=== PATIENT | male | born 1985 | race African-American/Black ===

== ENCOUNTER 2017-12-17 11:23 | Emergency (ER) | payer OTHER ==
[~2017-12-17] VITALS: Ht 167.6 cm; Wt 74.8 kg
[2017-12-17] MEDS ORDERED: FLEXERIL PO (12:05)
[2017-12-17] MEDS ORDERED: HYDROCODONE-AP1 EAC6 PO (12:05)
[2017-12-17] MEDS ORDERED: MEDROLDOSEPACK PO (12:05)
== END 2017-12-17 12:18 | disposition home or self-care (01) ==
LOC: ER 11:23
DX: M43.6 Torticollis (principal); K31.84 Gastroparesis; F17.210 Nicotine dependence, cigarettes, uncomplicated; Z90.49 Acquired absence of other specified parts of digestive tract; Z91.041 Radiographic dye allergy status

== ENCOUNTER 2019-03-07 18:41 | Inpatient (IN) | payer BC ==
[~2019-03-07] VITALS: Ht 152.4 cm; Wt 87.3 kg
[2019-03-07 18:41] VITALS: BP 152/99
[~2019-03-07 18:41] MED LIST: BENTYL 10 MG CA10 M1 PO; CARAFATE 11 GM/10 M1 PO; DURAGESIC1 EAC1 TRANSDERM; FLEXERIL PO; HYDROCODONE-AP1 EAC6 PO; IBUPROFEN 600600 M1 PO; MEDROLDOSEPACK PO; NORCO 5-325 TA1 EACH PO; OMEPRAZOLE40 MG PO; ONDANSETRON HCL4 M2 PO; OXYCODONE20 MG/1 ML PO; PERCOCET 5-3251 EACH PO; PHENERGAN 25 MG25 M1 PO; PROTONIX40 M1 PO; REGLAN 5 MG TAB5 M1 PO; TRAMADOL 50 MG50 MG PO; ZOFRAN ODT4 MG PO; ZOFRAN ODT8 MG PO
[2019-03-07 19:37] LABS: ABSOLUTE NEUTROPHILS 9.1 thou/uL (1.4-8.2); BASOPHILS 0.3 % (0.0-2.0); EOSINOPHILS 0.2 % (0.0-3.0); HEMATOCRIT 43.4 % (42.0-52.0); HEMOGLOBIN 14.7 gm/dL (14.0-18.0); LYMPHOCYTES 10.6 % (24.0-44.0); MCH 30.2 pg (26.0-34.0); MCHC 33.9 g/dL (28.0-37.0); MONOCYTES 2.3 % (1.0-8.0); PLATELET COUNT 258 thou/uL (150-400); POLYS 86.6 % (36.0-66.0); RBC 4.87 mil/uL (4.50-6.00); RDW 14.2 % (10.5-14.5); WBC 10.5 thou/uL (4.0-11.0)
[2019-03-07 19:43] LABS: CALCIUM 9.5 mg/dL (8.5-10.1); POTASSIUM 3.9 mmol/L (3.5-5.1)
[2019-03-07 19:50] LABS: ALBUMIN 4.5 g/dL (3.4-5.0); TOTAL BILIRUBIN 0.4 mg/dL (<0.1-1.0); TOTAL PROTEIN 8.1 g/dL (6.4-8.2)
[2019-03-07 21:45] VITALS: BP 153/93
[2019-03-07 21:59] VITALS: BP 103/62
[2019-03-07 22:21] VITALS: BP 85/54
[2019-03-08 00:19] VITALS: BP 157/84
--- NOTE | 2019-03-08 03:06 | NUR ---
Pt arrived from ED at 2215 via cart accompanied by abdirizak. Pt A/OX4 though he was sleepy.Up with SBA to the bed.Admission assessment completed and consents signed. Pt c/o abd pain in bilateral lower quads LOP 8/10,medicated with Morphine with some relief reported. Pt had about 20cc of green emesis,Zofran given with relief reported. IVF infusing via RUE IV without problems. Call light/personal items placed within reach. Will continue to monitor pt.
[2019-03-08 04:48] VITALS: BP 135/75
[2019-03-08 05:42] LABS: CALCIUM 8.5 mg/dL (8.5-10.1); CREATININE 0.8 mg/dL (0.7-1.3); POTASSIUM 3.5 mmol/L (3.5-5.1)
[2019-03-08 06:58] LABS: URINE BILIRUBIN NEGATIVE (Negative); URINE BLOOD NEGATIVE (Negative); URINE CLARITY CLEAR; URINE COLOR YELLOW; URINE GLUCOSE-RANDOM* NEGATIVE (Negative); URINE KETONES 2+ (Negative); URINE LEUKOCYTES-REFLEX NEGATIVE (Negative); URINE NITRITE-REFLEX NEGATIVE (Negative); URINE PROTEIN (DIPSTICK) NEGATIVE (Negative); URINE SPECIFIC GRAVITY >= 1.030 (1.005-1.035); URINE UROBILINOGEN 0.2 E.U./dl (0.2-1.0)
[2019-03-08 07:06] LABS: AMP/METHAMP Negative (Negative); BARBITURATES Negative (Negative); BENZODIAZEPINES Negative (Negative); COCAINE Negative (Negative); METHADONE Negative (Negative); OPIATES POSITIVE (Negative); PCP Negative (Negative)
[2019-03-08 07:30] VITALS: BP 119/76
--- NOTE | 2019-03-08 08:16 | NUR ---
ASSESMENT COMPLETED. VSS. A/O. PAIN MANAGED BY MEDS ORDERED. NO NOTED SOA. DENIES NV AT THIS TIME. NPO. UP AD SRIKANTH. CONSULT TO GI PLACED. WILL CONT. TO MONITOR.
[2019-03-08] MEDS ORDERED: ACETAMINOPHEN325 M1 PO (14:09)
--- NOTE | 2019-03-08 14:14 | NUR ---
REPORT FROM STAFF THAT PT WALKED OFF UNIT WITH BELONGINGS. PAGED SECURITY. CHECKED PT'S ROOM- NOTED 20 G IV CANNULA IN TRASH BIN. APPEARS THAT PT MAY HAVE TAKEN IT OFF HIMSELF. SECURITY VERIFIED THAT NO IV WAS PRESENT WHEN THEY SAW PT IN PARKING LOT. AIRMAILED DR. HOFFMANN TO UPDATE ABOUT PT'S ELOPEMENT. WAITING FOR CALL BACK.
--- NOTE | 2019-03-08 14:39 | NUR ---
THIS NURSE SAW THE PERIPHEARL IV IN THE BIN IN ROOM 423. PATIENT TOOK THE IV OUT AND LEFT IT IN THE TRASH BIN BEFORE HE LEFT THE FLOOR.
== END 2019-03-08 14:05 | disposition left against medical advice (07) | DRG 391 ==
LOC: ER 18:41 → 4E 21:19 → EROBS 21:19 → 4E 22:00
PROVIDERS: Nurse Practitioner Family; ADMIT Internal Medicine
DX: K31.84 Gastroparesis (principal); K85.90 Acute pancreatitis without necrosis or infection, unspecified; F12.90 Cannabis use, unspecified, uncomplicated; F17.210 Nicotine dependence, cigarettes, uncomplicated; Z53.21 Procedure and treatment not carried out due to patient leaving prior to being seen by health care provider; Z90.49 Acquired absence of other specified parts of digestive tract; Z87.11 Personal history of peptic ulcer disease; Z91.041 Radiographic dye allergy status
CPT/HCPCS: 10084

== ENCOUNTER 2019-03-09 18:08 | Inpatient (IN) | payer OTHER ==
[~2019-03-09] VITALS: Ht 167.6 cm; Wt 72.6 kg
[~2019-03-09 18:08] MED LIST changes: +ACETAMINOPHEN325 M1 PO
[2019-03-09 18:30] VITALS: BP 164/96
[2019-03-09 18:49] LABS: URINE BILIRUBIN NEGATIVE (Negative); URINE BLOOD NEGATIVE (Negative); URINE CLARITY CLEAR; URINE COLOR YELLOW; URINE GLUCOSE-RANDOM* NEGATIVE (Negative); URINE KETONES 2+ (Negative); URINE LEUKOCYTES NEGATIVE (Negative); URINE NITRITE NEGATIVE (Negative); URINE PROTEIN (DIPSTICK) 1+ (Negative)
[2019-03-09 18:50] LABS: ABSOLUTE NEUTROPHILS 9.2 thou/uL (1.4-8.2); BASOPHILS 0.2 % (0.0-2.0); EOSINOPHILS 0.1 % (0.0-3.0); HEMATOCRIT 44.2 % (42.0-52.0); HEMOGLOBIN 15.1 gm/dL (14.0-18.0); LYMPHOCYTES 9.5 % (24.0-44.0); MCH 30.3 pg (26.0-34.0); MCHC 34.2 g/dL (28.0-37.0); MCV 88.7 fL (80.0-100.0); MONOCYTES 3.3 % (1.0-8.0); PLATELET COUNT 292 thou/uL (150-400); POLYS 86.9 % (36.0-66.0); RBC 4.99 mil/uL (4.50-6.00); RDW 14.3 % (10.5-14.5); WBC 10.6 thou/uL (4.0-11.0)
[2019-03-09 18:57] LABS: POTASSIUM 3.6 mmol/L (3.5-5.1)
[2019-03-09 19:00] LABS: AMORPHOUS PHOSPHATES Many /LPF (None Seen); BACTERIA None Seen /HPF (None Seen); CASTS None Seen /LPF (None Seen); SQUAMOUS None Seen /LPF (0-3); URINE RBC None Seen /HPF (0-2); URINE WBC 0-5 Rare /HPF (0-5)
[2019-03-09 19:04] LABS: ALBUMIN 4.7 g/dL (3.4-5.0); TOTAL BILIRUBIN 0.4 mg/dL (<0.1-1.0); TOTAL PROTEIN 8.4 g/dL (6.4-8.2)
[2019-03-09 20:32] VITALS: BP 144/74
[2019-03-09 21:12] VITALS: BP 144/74
[2019-03-09 22:13] VITALS: BP 143/67
--- NOTE | 2019-03-09 22:40 | NUR ---
PT ADMITTED INTO ROOM 417. CAME UP AROUND 2120 HRS. PT BEEN SLEEPING MOSTLY. ADMISSION COMPLETED.PT RATES PAIN AT A 9/10 AROUND HIS LOWER ABDOMEN. HE HOWEVER SEEMS TO BE QUIETLY SLEEPING AND APPEARS TO BE IN NO DISTRESS. NO NAUSEA OR VOMITING NOTED AT THIS TIME. IVF INFUSING. ELEVATED TEMP NOTED-WILL RECHECK IN ONE HOUR AND TREAT.ROOM AIR-NO DISTRESS.STABLE ON FEET. WILL CONTINUE WITH POC TILL EOS.
[2019-03-10 03:20] VITALS: BP 128/77
[2019-03-10 08:42] VITALS: BP 101/84
[2019-03-10 16:00] VITALS: BP 122/61
--- NOTE | 2019-03-10 17:14 | NUR ---
PT ADMITTED RELATED TO PANCREATITIS. CM REVIEWED CHART AND SPOKE WITH CARE TEAM. CM MET WITH PT AT BEDSIDE THIS DAY. PT IS A&O X4. CM ROLE INTRODUCED. PT INDICATED THAT HE LIVES IN AN APARTMENT WITH IS FIANCE WITH 20 STEPS TO ENTER AND NO STEPS INSIDE. 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 UR NURSE INDICATED THAT PT HAD [employer] OUT OF AREA LISTED INSURANCE DURING HIS PREVIOUS HOSPITAL STAY AND THAT IT HAD TERMED February. CM ASKED IF PT HAD ANY CHANGES IN EMPLOYMENT HE INDICATED HE HADN'T AND THAT HE NEEDED TO CONTACT [employer]. CM TO FOLLOW INDICATED WITH DC PLANNING.
--- NOTE | 2019-03-10 18:21 | NUR ---
ASSUMED PT CARE AT APPROX. 1045, PT A&OX4 AMBULATES SELF IN ROOM/STEWART. IV INTACT IN R EJ INFUSING FLUIDS W/O COMPS. WAS NPO TIL DINNER HAD SOFT DIET, WILL BE NPO AT [place] FOR EGD. IV PAIN MEDS GIVEN Q 3 HRS FOR ABD PAIN AT 9-10.
[2019-03-10 20:00] VITALS: BP 125/72
--- NOTE | 2019-03-11 00:52 | NUR ---
PT IS UP AD SRIKANTH. DENIES NAUSEA. STILL C/O ABDOMINAL PAIN. PT IS NPO AFTER MIDNIGHT. PLAN FOR EGD TODAY.
[2019-03-11 07:10] VITALS: BP 141/94
[2019-03-11] MEDS ORDERED: NORCO 5-325 TA1 EACH PO (11:37)
[2019-03-11] MEDS ORDERED: PROTONIX40 M1 PO (14:10)
[2019-03-11 15:05] VITALS: BP 141/94
--- NOTE | 2019-03-11 15:36 | NUR ---
ASSUMED CARE OF PT AT 0700. ASSESSMENT CHARTED. A&O,X4. C/O ABD PAIN, PAIN MEDS GIVEN ORDERED. PT HAD EGD TODAY, RETURNED AT 13:50 IN STABLE CONDITION. NEW DISCHARGE ORDERS. RIGHT EJ IV REMOVED, NO ACTIVE BLEEDING. DISCHARGE INFORMATION AND NEW SCRIPTS GIVEN TO PT. PT REFUSED WHEELCHAIR ESCORT. S.O. TO PICK PT UP. PT LEFT WITH ALL BELONGINGS IN STABLE CONDITION, DENYING PAIN. PT LEFT AT APPROX 15:40.
--- NOTE | 2019-03-14 18:05 | PATH ---
[facility] [place] [address] [place] [address] PATHOLOGY RPT PROCEDURE Name: CAR TSANG Room #: 417-I DIS IN M.R.#: [id number] ������������������ Admission: 03/09/19 ������������������ Date of : 87 Discharge: 03/11/19 Report #: [id number] Path Case #: [id number] [facility] Accession Number: [id number] . 01 Material submitted: . stomach - BX GASTRITIS R/O H PYLORI . 01 Clinical history: . Pre-OP DX: Abdominal pain Post-OP DX: Gastritis, hiatal hernia . 02 Diagnosis: Gastric mucosa, gastritis, rule out H. pylori, endoscopic biopsy: - Mild chronic inflammation. - Negative for intestinal metaplasia or atrophy. - Negative for Helicobacter pylori (properly controlled immunohistochemical stain performed). (IUV:pit 03/14/2019) QTP/03/14/2019 . 02 Electronically signed: . Sonia Ramsey MD, Pathologist NPI- [id number] . 01 Gross description: . Received in formalin labeled "Car Tsang Jr, BX gastritis, rule out H. pylori," are 2 segments of love soft tissue measuring 0.9 x 0.3 x 0.2 cm in aggregate dimensions and ranging from 0.4 to 0.5 cm in maximum dimension. The specimen is submitted entirely in cassette A1. (TSD; 03/11/2019) TOB/TOB . 02 Pathologist provided ICD-10: K29.50 . 02 CPT . 879476, [id number] Specimen Comment: A courtesy copy of this report has been sent to Specimen Comment: [phone], . Specimen Comment: Report sent to / DR BETH Performed at: 01 [place] [id number] [id number] MD Devyn Vyas MD Phone: [phone] Performed at: [address] [id number] [address] [address] PATHOLOGY RPT PROCEDURE Name: CAR TSANG JR Room #: 417-I DIS IN M.R.#: [id number] ������������������ Admission: 03/09/19 ������������������ Date of : 87 Discharge: 03/11/19 Report #: [id number] Path Case #: [id number] MD Sonia Ramsey MD Phone: [phone]
== END 2019-03-11 16:27 | disposition home or self-care (01) | DRG 391 ==
LOC: ER 18:08 → EROBS 20:22 → 4E 20:22
PROVIDERS: Physician Assistant; ADMIT Hospitalist
PROC: 0DB68ZX Excision of Stomach, Via Natural or Artificial Opening Endoscopic, Diagnostic (ICD-10-PCS; principal; 2019-03-11)
DX: K29.70 Gastritis, unspecified, without bleeding (principal); K85.20 Alcohol induced acute pancreatitis without necrosis or infection; K76.0 Fatty (change of) liver, not elsewhere classified; K44.9 Diaphragmatic hernia without obstruction or gangrene; F17.290 Nicotine dependence, other tobacco product, uncomplicated; F12.11 Cannabis abuse, in remission; Z87.11 Personal history of peptic ulcer disease; Z90.49 Acquired absence of other specified parts of digestive tract; Z79.899 Other long term (current) drug therapy; Z91.041 Radiographic dye allergy status
CPT/HCPCS: 10084; 62110; 62900

== ENCOUNTER 2019-03-18 18:20 | Inpatient (IN) | payer OTHER ==
[~2019-03-18] VITALS: Ht 167.6 cm; Wt 77.1 kg
[2019-03-18 18:21] VITALS: BP 161/100
--- NOTE | 2019-03-18 18:24 | NUR ---
PT IN BATHROOM TO OBTAIN A URINE SPECIMEN. PT HAS STEADY GAIT.
[2019-03-18 18:49] LABS: URINE BILIRUBIN NEGATIVE (Negative); URINE BLOOD NEGATIVE (Negative); URINE CLARITY CLEAR; URINE COLOR YELLOW; URINE GLUCOSE-RANDOM* NEGATIVE (Negative); URINE KETONES NEGATIVE (Negative); URINE LEUKOCYTES NEGATIVE (Negative); URINE NITRITE NEGATIVE (Negative); URINE PROTEIN (DIPSTICK) 2+ (Negative); URINE SPECIFIC GRAVITY 1.015 (1.005-1.035); URINE UROBILINOGEN 0.2 E.U./dl (0.2-1.0)
[2019-03-18 19:00] LABS: BACTERIA 1-9 Few /HPF (None Seen); CASTS None Seen /LPF (None Seen); CRYSTALS None Seen /LPF (None Seen); MUCUS 0-3 Light strn/LPF (None Seen); SQUAMOUS None Seen /LPF (0-3); URINE RBC 0-2 Rare /HPF (0-2); URINE WBC 0-5 Rare /HPF (0-5)
[2019-03-18 20:00] LABS: MCV 87.7 fL (80.0-100.0)
[2019-03-18 20:02] LABS: ABSOLUTE NEUTROPHILS 9.5 thou/uL (1.4-8.2); BASOPHILS 0.4 % (0.0-2.0); EOSINOPHILS 0.1 % (0.0-3.0); HEMATOCRIT 43.2 % (42.0-52.0); HEMOGLOBIN 15.1 gm/dL (14.0-18.0); LYMPHOCYTES 12.4 % (24.0-44.0); MCH 30.7 pg (26.0-34.0); MONOCYTES 3.5 % (1.0-8.0); PLATELET COUNT 255 thou/uL (150-400); POLYS 83.6 % (36.0-66.0); RBC 4.92 mil/uL (4.50-6.00); RDW 14.4 % (10.5-14.5); WBC 11.4 thou/uL (4.0-11.0)
[2019-03-18 20:06] LABS: CALCIUM 10.3 mg/dL (8.5-10.1); POTASSIUM 3.8 mmol/L (3.5-5.1)
[2019-03-18 20:12] LABS: ALBUMIN 4.8 g/dL (3.4-5.0); TOTAL BILIRUBIN 0.4 mg/dL (<0.1-1.0); TOTAL PROTEIN 8.4 g/dL (6.4-8.2)
[2019-03-18 20:40] LABS: AMP/METHAMP Negative (Negative); BARBITURATES Negative (Negative); BENZODIAZEPINES Negative (Negative); COCAINE Negative (Negative); METHADONE Negative (Negative); OPIATES POSITIVE (Negative); PCP Negative (Negative)
[2019-03-18 21:10] VITALS: BP 161/100
[2019-03-18 21:23] VITALS: BP 141/72
[2019-03-18 21:45] VITALS: BP 123/68
[2019-03-19 03:35] VITALS: BP 155/89
--- NOTE | 2019-03-19 04:16 | NUR ---
PATINET IS ALERT AND ORIENTED. PATIENT IS ON CLEAR LIQUID DIET. PATIENT IS UP AD SRIKANTH. PATIENTS PAIN IS CONTROLLED. PATIENT HAS BEEN SLEEPING COMFORTABLY IN BED. PATIENT CO OF NAUSEA BUT NO VOMITING WITNESSED. WCM.
[2019-03-19 08:00] VITALS: BP 152/82
[2019-03-19] MEDS ORDERED: REGLAN 5 MG TAB5 MG PO (12:31)
[2019-03-19] MEDS ORDERED: ONDANSETRON HCL4 M2 PO (12:32)
[2019-03-19 12:45] VITALS: BP 152/82
[2019-03-19] MEDS ORDERED: PROTONIX 20 MG20 M1 PO (13:12)
--- NOTE | 2019-03-19 14:03 | NUR ---
ASSUMED CARE OF PT AT 0700. ASSESSMENT COMPLETED. A&O,X4. C/O NAUSEA AND ABD PAIN, PRN PAIN MEDS AND SCHEDULED NAUSEA MEDS GIVEN ORDERED. PT TOLERATING PO INTAKE. ROOM AIR. SKIN INTACT. UP AD SRIKANTH. NEW DISCHARGE ORDERS. NEW SCRIPTS GIVEN. IV REMOVED, NO ACTIVE BLEEDING. S.O. AT BEDSIDE TO TAKE PT HOME. D/C INSTRUCTIONS GIVEN TO PT AT BEDSIDE. STATE NO QUESTIONS OR CONCERNS. PT REFUSED WHEELCHAIR ESCORT. PT LEFT IN STABLE CONDTION WITH BELONGINGS AT 13:27.
== END 2019-03-19 13:47 | disposition home or self-care (01) | DRG 392 ==
LOC: ER 18:20 → EROBS 20:38 → 4E 21:32
PROVIDERS: Physician Assistant; ADMIT Hospitalist
DX: K31.84 Gastroparesis (principal); F12.90 Cannabis use, unspecified, uncomplicated; F17.210 Nicotine dependence, cigarettes, uncomplicated; Z90.49 Acquired absence of other specified parts of digestive tract; Z87.11 Personal history of peptic ulcer disease; Z79.899 Other long term (current) drug therapy; Z91.041 Radiographic dye allergy status; Z83.3 Family history of diabetes mellitus; Z82.49 Family history of ischemic heart disease and other diseases of the circulatory system
CPT/HCPCS: 10084

== ENCOUNTER 2019-05-30 20:47 | Emergency (ER) | payer OTHER ==
[~2019-05-30] VITALS: Ht 167.6 cm; Wt 81.7 kg
[~2019-05-30 20:47] MED LIST changes: +PROTONIX 20 MG20 M1 PO; +REGLAN 5 MG TAB5 MG PO
[2019-05-30 22:38] LABS: ABSOLUTE NEUTROPHILS 4.3 thou/uL (1.4-8.2); MCHC 34.4 g/dL (28.0-37.0)
[2019-05-30 22:40] LABS: BASOPHILS 0.5 % (0.0-2.0); EOSINOPHILS 2.6 % (0.0-3.0); HEMATOCRIT 37.6 % (42.0-52.0); HEMOGLOBIN 12.9 gm/dL (14.0-18.0); LYMPHOCYTES 26.9 % (24.0-44.0); MCH 29.3 pg (26.0-34.0); MCV 85.2 fL (80.0-100.0); MONOCYTES 5.9 % (1.0-8.0); PLATELET COUNT 184 thou/uL (150-400); POLYS 64.1 % (36.0-66.0); RBC 4.41 mil/uL (4.50-6.00); WBC 8.1 thou/uL (4.0-11.0)
[2019-05-30 22:41] LABS: CALCIUM 8.6 mg/dL (8.5-10.1); CREATININE 1.1 mg/dL (0.7-1.3); POTASSIUM 3.9 mmol/L (3.5-5.1)
[2019-05-30 22:48] LABS: ALBUMIN 3.3 g/dL (3.4-5.0); TOTAL BILIRUBIN 0.3 mg/dL (<0.1-1.0); TOTAL PROTEIN 7.3 g/dL (6.4-8.2)
[2019-05-31 01:03] LABS: URINE BILIRUBIN NEGATIVE (Negative); URINE BLOOD NEGATIVE (Negative); URINE CLARITY CLEAR; URINE COLOR YELLOW; URINE GLUCOSE-RANDOM* NEGATIVE (Negative); URINE KETONES 1+ (Negative); URINE LEUKOCYTES NEGATIVE (Negative); URINE NITRITE NEGATIVE (Negative); URINE PROTEIN (DIPSTICK) NEGATIVE (Negative); URINE SPECIFIC GRAVITY 1.015 (1.005-1.035); URINE UROBILINOGEN 0.2 E.U./dl (0.2-1.0)
[2019-05-31] MEDS ORDERED: NAPROSYN500 MG PO (01:09)
[2019-05-31 01:39] VITALS: BP 103/48
== END 2019-05-31 01:39 | disposition home or self-care (01) ==
LOC: ER 20:47
PROVIDERS: Physician Assistant
DX: B34.9 Viral infection, unspecified (principal); K31.84 Gastroparesis; F17.210 Nicotine dependence, cigarettes, uncomplicated; Z90.49 Acquired absence of other specified parts of digestive tract; Z91.041 Radiographic dye allergy status

== ENCOUNTER 2019-12-15 04:50 | Emergency (ER) | payer BC, OTHER ==
[~2019-12-15] VITALS: Ht 167.6 cm; Wt 79.4 kg
[~2019-12-15 04:50] MED LIST changes: +NAPROSYN500 MG PO
[2019-12-15] MEDS ORDERED: ZOFRAN ODT4 MG SUBLING (05:07)
[2019-12-15] MEDS ORDERED: ZOFRAN ODT4 MG PO (05:11)
[2019-12-15 05:25] VITALS: BP 122/81
== END 2019-12-15 05:25 | disposition home or self-care (01) ==
LOC: ER 04:50
DX: K31.84 Gastroparesis (principal); F17.210 Nicotine dependence, cigarettes, uncomplicated; Z90.49 Acquired absence of other specified parts of digestive tract; Z91.041 Radiographic dye allergy status

== ENCOUNTER 2020-03-10 18:29 | Emergency (ER) | payer OTHER ==
[~2020-03-10] VITALS: Ht 167.6 cm; Wt 81.7 kg
[~2020-03-10 18:29] MED LIST changes: +ZOFRAN ODT4 MG SUBLING
[2020-03-10] MEDS ORDERED: PROTONIX 20 MG20 MG PO (19:02)
[2020-03-10] MEDS ORDERED: BENTYL 10 MG CA10 M1 PO (19:02)
[2020-03-10 19:21] VITALS: BP 139/78
== END 2020-03-10 19:26 | disposition home or self-care (01) ==
LOC: ER 18:29
DX: R11.10 Vomiting, unspecified (principal); F17.200 Nicotine dependence, unspecified, uncomplicated; Z76.0 Encounter for issue of repeat prescription; Z90.49 Acquired absence of other specified parts of digestive tract; Z98.84 Bariatric surgery status

== ENCOUNTER 2020-05-10 17:00 | Emergency (ER) | payer OTHER ==
[~2020-05-10] VITALS: Ht 167.6 cm; Wt 79.4 kg
[~2020-05-10 17:00] MED LIST changes: +PROTONIX 20 MG20 MG PO
[2020-05-10 17:03] VITALS: BP 123/67
[2020-05-10] MEDS ORDERED: PANTOPRAZOLE SO40 M1 PO (17:11)
== END 2020-05-10 17:53 | disposition home or self-care (01) ==
LOC: ER 17:00
DX: K31.84 Gastroparesis (principal); F17.210 Nicotine dependence, cigarettes, uncomplicated; F12.90 Cannabis use, unspecified, uncomplicated; Z79.899 Other long term (current) drug therapy; Z87.11 Personal history of peptic ulcer disease; Z90.49 Acquired absence of other specified parts of digestive tract

== ENCOUNTER 2021-03-11 22:58 | Inpatient (IN) | payer BC ==
[~2021-03-11] VITALS: Ht 167.6 cm; Wt 77.1 kg
[~2021-03-11 22:58] MED LIST changes: +PANTOPRAZOLE SO40 M1 PO
[2021-03-11 23:02] VITALS: BP 120/80
[2021-03-11 23:35] LABS: ABSOLUTE NEUTROPHILS 10.5 thou/uL (1.4-8.2); BASOPHILS 0.4 % (0.0-2.0); EOSINOPHILS 1.8 % (0.0-3.0); HEMATOCRIT 40.2 % (42.0-52.0); LYMPHOCYTES 21.1 % (24.0-44.0); MCH 30.9 pg (26.0-34.0); MCHC 34.9 g/dL (28.0-37.0); MCV 88.6 fL (80.0-100.0); MONOCYTES 5.4 % (1.0-8.0); PLATELET COUNT 223 thou/uL (150-400); POLYS 71.3 % (36.0-66.0); RBC 4.54 mil/uL (4.50-6.00); RDW 14.1 % (10.5-14.5); WBC 14.7 thou/uL (4.0-11.0)
[2021-03-11 23:48] LABS: CALCIUM 9.3 mg/dL (8.5-10.1)
[2021-03-11 23:54] LABS: TOTAL BILIRUBIN 0.5 mg/dL (0.2-1.0)
[2021-03-12 00:08] LABS: POTASSIUM 6.1 mmol/L (3.5-5.1)
[2021-03-12 00:36] LABS: URINE BILIRUBIN NEGATIVE (Negative); URINE BLOOD NEGATIVE (Negative); URINE CLARITY CLEAR; URINE COLOR YELLOW; URINE GLUCOSE-RANDOM* NEGATIVE (Negative); URINE KETONES NEGATIVE (Negative); URINE LEUKOCYTES-REFLEX NEGATIVE (Negative); URINE NITRITE-REFLEX NEGATIVE (Negative); URINE PROTEIN (DIPSTICK) 1+ (Negative); URINE UROBILINOGEN 0.2 E.U./dl (0.2-1.0)
[2021-03-12 00:59] LABS: BACTERIA-REFLEX 1-9 Few /HPF (None Seen); CASTS None Seen /LPF (None Seen); CRYSTALS None Seen /LPF (None Seen); MUCUS 4-6 Moderate strn/LPF (None Seen); SQUAMOUS 0-3 Few /LPF (0-3); URINE RBC 0-2 Rare /HPF (0-2); URINE WBC-REFLEX 0-5 Rare /HPF (0-5)
[2021-03-12 06:40] VITALS: BP 142/71
--- NOTE | 2021-03-12 06:47 | NUR ---
Report attempted to 4th floor nurse. Reports nurse is not yet here and will call back.
--- NOTE | 2021-03-12 06:51 | NUR ---
Contacted Mem[facility] Deleon for pain medication order. Order received and entered.
[2021-03-12 07:23] LABS: ABSOLUTE NEUTROPHILS 12.3 thou/uL (1.4-8.2); BASOPHILS 0.5 % (0.0-2.0); EOSINOPHILS 0.3 % (0.0-3.0); HEMATOCRIT 41.4 % (42.0-52.0); LYMPHOCYTES 11.1 % (24.0-44.0); MCH 30.5 pg (26.0-34.0); MCHC 33.9 g/dL (28.0-37.0); MCV 89.8 fL (80.0-100.0); PLATELET COUNT 230 thou/uL (150-400); POLYS 85.1 % (36.0-66.0); RBC 4.61 mil/uL (4.50-6.00); RDW 14.2 % (10.5-14.5); WBC 14.5 thou/uL (4.0-11.0)
[2021-03-12 07:40] VITALS: BP 129/63
[2021-03-12 07:43] LABS: POTASSIUM 3.9 mmol/L (3.5-5.1)
[2021-03-12 08:53] VITALS: BP 143/65
--- NOTE | 2021-03-12 09:40 | EKG ---
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
--- NOTE | 2021-03-12 14:07 | NUR ---
PATIENT ARRIVED TO UNIT AT APPROXIMATELY 0830. ORIENTED TO ROOM, PROVIDED CALL LIGHT AND ADMISSION PACKET. ADMISSION COMPLETE. PATIENT C/O ABDOMINAL PAIN; THIS NURSE ATTEMPTED TO ADMINISTER TYLENOL HOWEVER THE PATIENT VOMITED IT. PROVIDER NOTIFIED. FLUIDS AND ABX INFUSING ON L HAND W NO ISSUES. INSURANCE UPDATE; PATIENT IS OON AND CM IS CURRENTLY WORKING ON TRANSFER TO . WILL CONTINUE TO MONITOR PATIENT; PATIENT GETS UP INDEPENDENTLY W NO ISSUES AND MAKES NEEDS KNOWN
--- NOTE | 2021-03-12 14:21 | NUR ---
PT ADMITTED RELATED TO GASTROPARESIS, INTRACTABLE VOMITING. CM REVIEWED CHART AND SPOKE WITH CARE TEAM. CM WAS NOTIFIED BY UR NURSE THAT PT'S [employer] IS OON HERE AND THAT PT WOULD NEED TO TRANSFER TO AN IN NETWORK FACILITY. IN NETWORK [facility]. CM MET WITH PT AT BEDSIDE THIS DAY. PT APPERED TO BE A&O X4. CM ROLE INTRODUCED. PT INDICATED HE RESIDES IN AN APARTMENT WITH HIS WITH NO STEPS. 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 PT INDICATED HE WANTS TO LOOK AT TRANSFERING TO . CM CONTACTED [employer]ATE AND FAXED RECORDS FOR REVIEW. AWAITING RESPONSE.
--- NOTE | 2021-03-12 16:31 | NUR ---
[facility] CALLED [facility] INDICATED THAT THEY HAD CALLED PHYSICIAN DR. BETH AND HE INDICATED THAT PT WOULD LIKELY BE MEDICALLY STABLE TO DC HOME TOMORROW AND THAT THEREFORE THEY WOULD NOT BE ACCEPTING PT IN TRANSFER. UR NURSE REACHED OUT TO INSURANCE TO SEE IF THEY WOULD AUTH ONE DAY. CM AWAITING RESPONSE.
[2021-03-12 17:00] VITALS: BP 148/90
[2021-03-12 19:21] VITALS: BP 146/70
[2021-03-13 05:40] LABS: HEMATOCRIT 38.7 % (42.0-52.0); HEMOGLOBIN 12.8 gm/dL (14.0-18.0); MCH 29.6 pg (26.0-34.0); MCHC 33.1 g/dL (28.0-37.0); MCV 89.6 fL (80.0-100.0); RBC 4.32 mil/uL (4.50-6.00); WBC 15.9 thou/uL (4.0-11.0)
[2021-03-13 05:54] LABS: CALCIUM 8.6 mg/dL (8.5-10.1); CREATININE 0.9 mg/dL (0.7-1.3); MAGNESIUM 1.8 mg/dL (1.8-2.4)
[2021-03-13 07:12] VITALS: BP 151/85
[2021-03-13] MEDS ORDERED: ZOFRAN ODT4 MG DISSOLVE (11:43)
[2021-03-13] MEDS ORDERED: ULTRAM50 MG PO (11:43)
[2021-03-13] MEDS ORDERED: LEVOFLOXACIN500 MG PO (11:44)
[2021-03-13 12:55] VITALS: BP 151/85
--- NOTE | 2021-03-13 14:17 | NUR ---
ASSUMED CARE OF PATIENT AT SHIFT CHNAGE; 0700. ASSESSMENT CHARTED. MEDICATIONS ADMINISTERED PER MAR. VSS; AFEBRILE THIS SHIFT. PATIENT IS A&OX4 AND C/O ABDOMINAL PAIN AND NAUSEA. PATIENT SAYS HE HAD DRY HEAVING THIS A.M. BUT WAS NOT ABLE TO TOLERATE APPLE JUICE AND VOMITED. PROVIDER SAW PATIENT AND DIRECTED HIM TO FOLLOW UP W HIS PRIMARY CARE PROVIDER AND CLEARED THE PATIENT FOR DISCHARGE. PATIENT VOICED NO OTHER NEEDS AT TIME OF DISCHARGE. REFUSED WRITTEN EDUCATION ON PRESCRIPTIONS PHARMACY WILL PROVIDE INFO. PATIENT LEFT AT APPROX 1415
--- NOTE | 2021-03-13 15:07 | NUR ---
CARE TEAM INDICATED THAT PT IS MEDICALLY STABLE TO DC HOME THIS DAY. PT TO DC HOME TO SELF CARE. NO OTHER CM INTERVENTION INDICATED. CASE CLOSED.
== END 2021-03-13 14:30 | disposition home or self-care (01) | DRG 690 ==
LOC: ER 22:58 → EROBS 03-12 03:09 → 4W 03-12 03:09
PROVIDERS: Emergency Medicine; Nurse Practitioner; ADMIT Hospitalist; ATTEND Hospitalist
DX: N30.90 Cystitis, unspecified without hematuria (principal); K31.84 Gastroparesis; F12.90 Cannabis use, unspecified, uncomplicated; E87.5 Hyperkalemia; K52.9 Noninfective gastroenteritis and colitis, unspecified; Z90.49 Acquired absence of other specified parts of digestive tract; F17.210 Nicotine dependence, cigarettes, uncomplicated; Z91.041 Radiographic dye allergy status; Z87.11 Personal history of peptic ulcer disease
CPT/HCPCS: 10047

== ENCOUNTER 2021-08-15 07:11 | Inpatient (IN) | payer OTHER ==
[~2021-08-15] VITALS: Ht 167.6 cm; Wt 77.1 kg
[~2021-08-15 07:11] MED LIST changes: +LEVOFLOXACIN500 MG PO; +ULTRAM50 MG PO; +ZOFRAN ODT4 MG DISSOLVE
[2021-08-15 07:13] VITALS: BP 150/106
[2021-08-15 07:43] LABS: URINE BILIRUBIN 2+ (Negative); URINE BLOOD NEGATIVE (Negative); URINE CLARITY SL CLOUDY; URINE COLOR YELLOW; URINE GLUCOSE-RANDOM* NEGATIVE (Negative); URINE KETONES 1+ (Negative); URINE LEUKOCYTES-REFLEX NEGATIVE (Negative); URINE NITRITE-REFLEX NEGATIVE (Negative); URINE PROTEIN (DIPSTICK) 2+ (Negative); URINE SPECIFIC GRAVITY 1.025 (1.005-1.035); URINE UROBILINOGEN 0.2 E.U./dl (0.2-1.0)
[2021-08-15 07:45] LABS: ABSOLUTE NEUTROPHILS 8.6 thou/uL (1.4-8.2); BASOPHILS 0.5 % (0.0-2.0); EOSINOPHILS 1.9 % (0.0-3.0); HEMATOCRIT 43.8 % (42.0-52.0); HEMOGLOBIN 15.1 gm/dL (14.0-18.0); LYMPHOCYTES 26.8 % (24.0-44.0); MCH 30.3 pg (26.0-34.0); MCHC 34.4 g/dL (28.0-37.0); MCV 88.2 fL (80.0-100.0); MONOCYTES 7.1 % (1.0-8.0); PLATELET COUNT 268 thou/uL (150-400); POLYS 63.7 % (36.0-66.0); RBC 4.97 mil/uL (4.50-6.00); RDW 14.6 % (10.5-14.5); WBC 13.5 thou/uL (4.0-11.0)
[2021-08-15 07:54] LABS: CALCIUM 9.9 mg/dL (8.5-10.1)
[2021-08-15 07:55] LABS: POTASSIUM 4.8 mmol/L (3.5-5.1)
[2021-08-15 08:00] LABS: ALBUMIN 4.6 g/dL (3.4-5.0); TOTAL BILIRUBIN 0.7 mg/dL (0.2-1.0); TOTAL PROTEIN 8.8 g/dL (6.4-8.2)
[2021-08-15 08:46] LABS: CASTS None Seen /LPF (None Seen); CRYSTALS None Seen /LPF (None Seen); SQUAMOUS None Seen /LPF (0-3)
[2021-08-15 08:47] LABS: BACTERIA-REFLEX 1-9 Few /HPF (None Seen); MUCUS 4-6 Moderate strn/LPF (None Seen); URINE RBC None Seen /HPF (NONE SEEN); URINE WBC-REFLEX 0-5 Rare /HPF (0-5)
[2021-08-15 14:18] VITALS: BP 154/87
[2021-08-15 14:52] VITALS: BP 143/91
[2021-08-15 15:02] VITALS: BP 167/78
--- NOTE | 2021-08-15 15:55 | NUR ---
Assumed patient care about 3:50pm.
[2021-08-15 19:35] VITALS: BP 108/85
--- NOTE | 2021-08-15 19:39 | NUR ---
A/O, calm and cooperative. vomited 3 times, watery and yellow. medication given. bed rest now.
--- NOTE | 2021-08-16 03:21 | NUR ---
Pt. rested quietly at intervals during the night when chcked on during frequent rounds. He c/o chronic nausea amd antiemetics given (see emar) with some relief noted. Pt. also c/o abdomina; pain and pain med given (see emar) with some relief.
[2021-08-16 08:09] VITALS: BP 127/70
[2021-08-16 09:35] LABS: ABSOLUTE NEUTROPHILS 11.6 thou/uL (1.4-8.2); BASOPHILS 0.3 % (0.0-2.0); EOSINOPHILS 0.2 % (0.0-3.0); HEMATOCRIT 43.2 % (42.0-52.0); HEMOGLOBIN 14.4 gm/dL (14.0-18.0); LYMPHOCYTES 13.7 % (24.0-44.0); MCH 30.1 pg (26.0-34.0); MCHC 33.3 g/dL (28.0-37.0); MCV 90.4 fL (80.0-100.0); MONOCYTES 9.5 % (1.0-8.0); PLATELET COUNT 206 thou/uL (150-400); POLYS 76.3 % (36.0-66.0); RBC 4.78 mil/uL (4.50-6.00); RDW 14.5 % (10.5-14.5); WBC 15.2 thou/uL (4.0-11.0)
[2021-08-16 09:50] LABS: AMP/METHAMP Negative (Negative); BARBITURATES Negative (Negative); BENZODIAZEPINES Negative (Negative); COCAINE Negative (Negative); METHADONE Negative (Negative); OPIATES Negative (Negative); PCP Negative (Negative)
[2021-08-16 09:52] LABS: CREATININE 0.9 mg/dL (0.7-1.3); MAGNESIUM 1.9 mg/dL (1.8-2.4); POTASSIUM 3.8 mmol/L (3.5-5.1)
--- NOTE | 2021-08-16 14:51 | NUR ---
PT ADMITTED RLATED TO VOMITING AND NAUSEA. CM REVIEWED CHART AND SPOKE WITH CARE TEAM. CM MET WITH PT AT BEDSIDE THIS DAY. PT APPEARED TO BE A&O X4. CM ROLE INTRODUCED. PT INDICATED HE LIVES IN AN APARTMENT WITH HIS SPOUSE WITH NO STEPS TO ENTER AND NO STEPS INSIDE. 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 PT INDICATED HE HAS A PCP DR. CHEMA LOW AT [facility] IN [facility]. PT IS PATIENT PAY. PT PLANS TO RETURN HOME ONCE MEDICALLY STABLE. AWAITING GI CONSULT AND POSSIBLE SCOPE. PT WILL BE ABLE TO DC HOME ONCE MEDICALLY STABLE.
[2021-08-16 16:05] VITALS: BP 109/64
--- NOTE | 2021-08-16 16:40 | NUR ---
TODAY THIS PT HAS HAD NO STATED PAIN AND HAS HAD OTHERWISE STABLE VS. SHE HAS RECIEVED ONE DOSE OF INSULIN SO FAR THIS SHIFT AND HAS HAD A BATH DONE WELL BEEN GETTING TURNED EVERY TWO HOURS. SHE HAS HAD A COUPLE OF INCONTINENT OCCURENCES TODAY BUT OTHERWISE SHE HAS BEEN ON AND OFF ALSEEP AND TOLERATING HER MEALS WELL.
--- NOTE | 2021-08-16 16:49 | NUR ---
TODAY THIS PT HAS HAD SOME STATED PAIN AND NAUSEA IN WHICH THEY WERE TAKEN CARE OF WITH MEDICATION. HE HAS BEEN NPO TODAY DUE TO CONTINUOS N&V AND HE HAS OTHERWISE BEEN TOLERATING HIS FLUIDS WELL. HE CANNOT KEEP ANYTHING DOWN. WE TRIED ORAL PAIN MEDICATION THIS AFTERNOON AND HE HAD MULTIPLE MOMENTS TO WHERE HE WOULD DRY HEAVE. HE DOES HAVE Q8 TORADOL ORDERED. HE IS OTHERIWSE WAITING FOR THE NEXT PLAN.
[2021-08-16 19:38] VITALS: BP 141/82
[2021-08-17 07:28] VITALS: BP 147/89
[2021-08-17] MEDS ORDERED: REGLAN 10 MG TA10 MG PO ×2 (07:41)
[2021-08-17] MEDS ORDERED: PEPCID20 MG PO ×2 (07:41)
--- NOTE | 2021-08-17 09:24 | NUR ---
today this pt is ready for d/c no N&V overnught and none after his diet advancement for breakfast. he has tolerated his food well and no pain this morning.
[2021-08-17 09:25] VITALS: BP 147/89
--- NOTE | 2021-08-17 09:48 | NUR ---
LATE ENTRY 08/16/21 ASSUMED CARE ON 1900, HAD EPISODES OF N/V, WHICH WAS CONTROLLED WITH MEDICATION. HAD ABDOMINAL PAIN WHICH WAS CONTROLLED WITH IV PAIN MEDS TORODOL AND ONE TIME WITH ORAL PAIN MEDICATION @ 2200 FOR A 7/10 PAIN SCALE. IV FLUIDS RUNNING @ 100MLS/HOUR. WILL CONTINUE TO MONITOR FOR SAFETY AND COMFORT PER UNIT PROTOCOL. UP AD SRIKANTH AND X2 GOT UP AND WALKED IN THE HALLS.
[2021-08-18] MEDS ORDERED: NOHOMEMEDICATIONS (03:08)
[2021-08-18] MEDS ORDERED: NORCO5 PO (04:22)
== END 2021-08-17 10:36 | disposition home or self-care (01) | DRG 392 ==
LOC: ER 07:11 → EROBS 13:43 → 4W 14:46
PROVIDERS: Emergency Medicine; Nurse Practitioner; ADMIT Hospitalist; ATTEND Hospitalist
DX: R11.2 Nausea with vomiting, unspecified (principal); Z53.29 Procedure and treatment not carried out because of patient's decision for other reasons; Z90.49 Acquired absence of other specified parts of digestive tract
CPT/HCPCS: 10040

== ENCOUNTER 2021-08-18 02:59 | Emergency (ER) | payer OTHER ==
[~2021-08-18] VITALS: Ht 167.6 cm; Wt 77.1 kg
[~2021-08-18 02:59] MED LIST changes: +PEPCID20 MG PO; +REGLAN 10 MG TA10 MG PO
[2021-08-18 03:04] VITALS: BP 133/79
[2021-08-18] MEDS ORDERED: NOHOMEMEDICATIONS (03:08)
[2021-08-18] MEDS ORDERED: NORCO5 PO (04:22)
== END 2021-08-18 04:37 | disposition home or self-care (01) ==
LOC: ER 02:59
DX: R10.9 Unspecified abdominal pain (principal); R11.0 Nausea; F17.210 Nicotine dependence, cigarettes, uncomplicated; Z91.041 Radiographic dye allergy status; Z90.49 Acquired absence of other specified parts of digestive tract